=== PATIENT | male | born 1965 | race African-American/Black ===

== ENCOUNTER → 2020-07-11 | Outpatient (CLI) | payer BC ==
--- NOTE | 2020-07-11 13:46 | RAD ---
Single frontal chest radiograph and 2 views of the left ribs without comparison for fall on Wednesday, left rib pain. FINDINGS: There is mild elevation the right hemidiaphragm. There is a small band of atelectasis or less likely infiltrate in the left lower lung. No pneumothorax. Heart size within normal limits. No radiographically discernible rib fractures are identified. IMPRESSION: 1. Small area of atelectasis or possibly but less likely pneumonic infiltrate in the left lung base. 2. No radiographically discernible left rib fractures. Electronically signed by: Alexis Mercado MD (07/11/2020 1:43 PM) [id number]
== END ==
LOC: RAD 12:00
PROVIDERS: ATTEND Physician Assistant
DX: R07.82 Intercostal pain (principal); J98.11 Atelectasis
CPT/HCPCS: 71101